=== PATIENT | female | born 1985 | race Caucasian/White ===

== ENCOUNTER 2020-08-14 06:00 | Outpatient (RCR) | payer MEDICAID, SELFPAY | END 2020-08-17 23:59 | disposition home or self-care (01) | LOC: SPT 06:00 | PROVIDERS: PCP Family Medicine; Referring Provider Family Medicine; Visit Provider Family Medicine | DX: R10.2 Pelvic and perineal pain (principal) | CPT/HCPCS: 97110; 97161 ==

== ENCOUNTER 2020-08-18 06:00 | Outpatient (RCR) | payer BC, SELFPAY | END 2020-09-17 23:59 | disposition home or self-care (01) | LOC: SPT 06:00 | PROVIDERS: PCP Family Medicine; Referring Provider Family Medicine; Visit Provider Family Medicine | DX: R10.2 Pelvic and perineal pain (principal) | CPT/HCPCS: 97110 ==

== ENCOUNTER 2020-09-04 11:25 | Outpatient (CLI) | payer BC, MEDICAID, SELFPAY ==
[2020-09-04] VITALS (10 sets, daily range): BP systolic 102–114; BP diastolic 66–78; PULSE 84–106; RESP 16; TEMP 36.4; O2SAT 96–99; BMI 32.9
== END 2020-09-04 12:17 | disposition home or self-care (01) ==
LOC: OPOB 11:32 → OBGYN 11:35
PROVIDERS: PCP Family Medicine; Visit Provider Family Medicine
DX: O36.8190 Decreased fetal movements, unspecified trimester, not applicable or unspecified (principal); Z3A.00 Weeks of gestation of pregnancy not specified
CPT/HCPCS: 59025; 99211

== ENCOUNTER 2020-09-06 05:44 | Inpatient (IN) | payer BC, MEDICAID, SELFPAY ==
[2020-09-06] VITALS (29 sets, daily range): BP systolic 101–125; BP diastolic 58–82; PULSE 53–96; RESP 15–18; TEMP 36.4–36.8; O2SAT 95–100
[2020-09-06 06:35] LABS: Basophils % 0.2 %; Eosinophils % 0.3 %; Hematocrit 34.2 % (37.0-47.0); Lymphocytes % 18.1 %; Mean Corpuscular HGB Conc 32.2 g/dL (30.0-36.0); Mean Corpuscular Hemoglobin 28.3 pg (28.0-34.0); Mean Corpuscular Volume 87.9 fL (81-99); Mean Platelet Volume 11.2 fL (7.4-10.4); Monocytes # 0.7 10^3/uL (0.2-0.9); Monocytes % 6.6 %; Neutrophils # 8.14 10^3/uL (1.8-7.7); Nucleated Red Blood Cells % 0 %; Platelet Count 277 10^3/cmm (130-400); Red Blood Count 3.89 10^6/uL (4.1-5.3); Red Cell Distribution Width 13.9 % (12.1-15.1)
--- NOTE | 2020-09-06 06:56 | P.ANESASSM_ITS ---
Pre-Anesthetic Assessment Pre-Anesthetic Assessment: Height/Weight: Height 1.63 m Temp Pulse BP 97.5 F L 90 112/80 09/06/20 06:04 09/06/20 06:49 09/06/20 06:49 Preop Diagnosis: cS Proposed Procedure: Operation Date: 09/06/20 07:00 Proposed Procedures p Section Repeat(Not Applicable) - Ila Rivera MD Familial anesthetic complications: none Was Beta Carlos Eduardo taken within 24 hours: N/A Last Intake: 18:30 Exam: Pre-Anes Outpt Exam: alert, oriented x 3, clear to auscultation bilaterally and regular rate & rhythm Airway: Submandibular: WNL Cervical ROM: WNL MP: 1 History/ROS: No significant history except as noted GI: Comments: N/V/D Data Anesthesia CBC & Chem 7: 09/06/20 06:15 Other Labs: Laboratory Results - last 48 hr 09/06/20 06:15 WBC 11.0 H RBC 3.89 L Hgb 11.0 L Hct 34.2 L MCV 87.9 MCH 28.3 MCHC 32.2 RDW 13.9 Plt Count 277 MPV 11.2 H Neut % (Auto) 74.0 Lymph % (Auto) 18.1 [place] % (Auto) 6.6 Eos % (Auto) 0.3 Baso % (Auto) 0.2 Neut # (Auto) 8.14 H Lymph # (Auto) 2.0 [place] # (Auto) 0.7 Eos # (Auto) 0.0 Baso # (Auto) 0.0 Nucleated RBC % (auto) 0 Nucleated RBCs # 0.0 Cardiac Studies: No Data to Display
[2020-09-06] MEDS: famotidine 20 mg/2 mL INJ IVP (07:00)
[2020-09-06] MEDS: lactated ringers 1,000 ML 999 ML IV ×2 (07:00→19:59)
[2020-09-06] MEDS: metoclopramide 5 mg/mL SDV 2 mL 10 MG IVP (07:00)
[2020-09-06] MEDS: citric acid-sodium citrate 30 mL UDC PO (07:00)
--- NOTE | 2020-09-06 08:54 | P.HP_ITS ---
Providers/Chief Complaint Admitting Physician: Ila Rivera MD Primary Care Provider: Ila Rivera MD Chief Complaint: STACIE 09/12/20 History of Present Illness Alycia Witt is a 34 year old female G6, P4 at 39 weeks gestation here for repeat section and desired permanent surgical sterilization. Review of Systems Const: Denies: fever(s) or chills Eyes: Denies: change in vision ENMT: Denies: throat pain Card: Denies: chest pain or palpitations GI: Denies: abdominal pain, nausea or vomiting : Denies: flank pain or difficulty voiding Skin/Breast: Denies: rash Neuro: Denies: numbness in extremities Endo: Denies: polydipsia Govind/Lymph: Denies: easy bruising or easy bleeding Medications/Allergies Home Medications Medication Instructions Recorded Confirmed Last Taken Type docusate sodium [DOK] 100 mg PO BID #60 cap 09/08/20 Unknown Rx hydrocodone-acetaminophen 1 - 2 tab PO Q4H PRN #20 tab 09/08/20 Unknown Rx ibuprofen 800 mg PO TID PRN #30 tab 09/08/20 Unknown Rx Allergies Allergy/AdvReac Type Severity Reaction Status Date / Time No Known Allergies Allergy Verified 09/04/20 11:52 PFSH Acute Female Reproductive History: : 6 Para: 4 Spontaneous abortions: Yes Vitals/I&O/Wt Last Vital Signs Temp 97.5 F L 09/06/20 06:04 Pulse 79 09/06/20 07:19 Resp 18 09/06/20 05:54 BP 118/73 09/06/20 07:19 Physical Exam HENMT: COMMON NORMALS: normocephalic and atraumatic FACE & SINUS: normal facial exam Eye: COMMON NORMALS: Equal, round and reactive pupils present and EOMs intact bilaterally Chest: COMMONS NORMALS: normal inspection of the chest Resp: COMMON NORMALS: normal respiratory effort AUSCULTATION: clear to auscultation bilaterally Cardio: COMMON NORMALS: regular rate and regular rhythm GI: PALPATION: Yes Soft to palpation Extremity: GENERAL: No calf tenderness and Yes edema Neuro: SENSORIUM/ORIENTATION: Yes alert, Yes oriented to person, Yes oriented to place and Yes oriented to time Psych: COMMON NORMALS: mental status grossly normal APPEARANCE: Yes grossly normal Skin: GENERAL SKIN EXAM: no rashes or lesions noted Urinary Catheter Management^: Horton: Cath Placed During This Visit: yes Urinary Catheter Date of Insertion: 09/06/20 Urinary Catheter Time of Insertion: 07:50 Data : 09/06/20 20:55 A&P Assessment and plan (1) History of section complicating : Repeat section Status: Resolved (2) Encounter for sterilization: Bilateral tubal ligation Status: Acute (3) with 39 completed weeks gestation: Status: Resolved Attestations Medical Necessity Statement*: Routine surgery and postoperative care Coding Level of Care Code Acute Administrative Assistant Receptionist for Chg Fwd Diagnoses History of section complicating O34.219 Encounter for sterilization Z30.2 with 39 completed weeks gestation Z3A.39
--- NOTE | 2020-09-06 08:57 | P.OP_ITS ---
Operative Report Date of procedure: September 06, 2020 Pre-op Diagnosis: Repeat section with bilateral tubal ligation Post-op diagnosis: same Procedure Done: Repeat low transverse section Bilateral tubal ligation Specimens removed/disposition: Vertex female infant weight 4000 g Apgars 9 and 9 Pathology: Segments of right and left fallopian tubes Surgeon: Ila Rivera Anesthesia: Other (Spinal) Estimated blood loss (mL): 400 IV fluids (mL): 2,000 Urine output (mL): 50 Complications: None Condition: stable Disposition: floor Procedure: After informed consent the patient was taken to the OR where she was prepped and draped in normal sterile fashion in dorsal supine position with a left lateral tilt. After adequate spinal anesthesia was verified a Pfannenstiel skin incision was made through the prior scar and carried through to the underlying layer of fascia sharply. The fascial incision was then extended laterally using the [place]. There was a decent amount of fascial scarring and paucity of midline rectus muscles. The fascia was then grasped with [place] clamps and the underlying tissues were carefully dissected off. The peritoneum was then entered bluntly and the incision site was stretched manually. There was some thick peritoneum that required dissection using the [place]. The bladder blade was then inserted and the vesicouterine peritoneum was identified and entered sharply using the Metzen[place]ums. Bladder flap was created digitally and the bladder blade was reinserted. Uterine incision was made in a transverse fashion in the lower uterine segment. Amniotic rupture of membranes was performed using an Allis clamp and clear fluid was noted. The 's head and body were delivered atraumatically with bulb suction of the mouth and nares at delivery. The cord was clamped and cut and the was handed to the waiting pediatric nurse. Cord blood was obtained. The placenta was delivered using fundal pressure. The uterus was then exteriorized from the abdomen and a dry sponge was used to clear the uterus of clots and debris. The uterine incision was repaired using 0 chromic in a running locked fashion. A second layer of the same suture was used in an imbricating manner. There was excellent hemostasis. The right fallopian tube was then grasped with a Juan and a proximal portion of the tube was ligated and excised. Specimen was sent to pathology. Tubal ostia were identified. The cut segments of the tube were coagulated using the Bovie. The left fallopian tube was then grasped with a Juan and a proximal portion of the tube was ligated and excised. Specimen was sent to pathology. Tubal ostia were identified. The cut portions of the tube were coagulated using the Bovie. The uterus was then gently returned to the abdomen. Irrigation was used to clear the gutters of clots and debris and the uterine incision was reinspected for hemostasis. The cut portions of the tube were also inspected for hemostasis. The peritoneum was then gently reapproximated using 4-0 Vicryl in a running fashion. The subfascial tissue was inspected for hemostasis. The fascia was then reapproximated using 0 Vicryl in a running fashion. The subcutaneous tissue was then irrigated and inspected for hemostasis. Any small bleeders were coagulated using the Bovie. The skin was then reapproximated using 4-0 Vicryl on a [place] needle. Steri-Strips and a pressure bandage were applied and patient went to recovery in stable condition
[2020-09-06] MEDS: ketorolac 30 mg/mL INJ IVP ×3 (09:51→20:33)
[2020-09-06] MEDS: dextrose 5%-lactated ringers 1,000 ML 125 ML IV ×2 (09:51→18:16)
--- NOTE | 2020-09-06 11:12 | PC.NURSE ---
0834 Mom still in OR Baby needing to feed for blood sugar = 32. Mom willing, just needed help with latch and holding. included dad to help.
[2020-09-06] MEDS: ondansetron 2 mg/ML SDV 2 mL 4 MG IVP ×2 (11:35→15:49)
--- NOTE | 2020-09-06 15:50 | PC.NURSE ---
Nausea/Vomiting Episode Patient assisted to high herring's position. Complained of the room spinning and feeling lightheaded. Had patient remain in bed for a few minutes until she reported improvement. Patient desired to continue to move towards edge of bed. Assisted patient slowly to edge of bed and allowed her feet to dangle. She reported feeling slightly lightheaded. Talked with patient for 3-5 minutes while her feet dangled off edge of bed. Patient then got immediate wave of nausea and requested bucket. Had one episode of emesis, but reported improvement after vomiting. Patient requested to remain sitting on side of bed. This nurse checked on her in 15 minutes, patient complained of increase nausea and lightheadedness, requested to lay back in bed. This nurse stated we will attempt to get out of bed next hour and allow patient to recover.
[2020-09-06] MEDS: sodium chloride 0.9% 500 ML 999 ML IV (17:38)
--- NOTE | 2020-09-06 18:31 | ANE.PACU2 ---
Inpatient post-anesthesia follow up: Airway intact: Yes Vital signs: Temperature 97.6 F Pulse Rate 67 Respiratory Rate 16 Blood Pressure 117/71 Pulse Oximetry 98 Oxygen Delivery Me thod Room Air Oxygen Flow Rate Fraction of Inspir ed Oxygen Hydration adequate: Yes Nausea and vomiting: No Pain level: 2 Mental status: Baseline
[2020-09-06 21:27] LABS: Hematocrit 30.1 % (37.0-47.0); Hemoglobin 9.7 g/dL (11.5-15.3); Mean Corpuscular HGB Conc 32.2 g/dL (30.0-36.0); Mean Corpuscular Hemoglobin 28.5 pg (28.0-34.0); Mean Corpuscular Volume 88.5 fL (81-99); Mean Platelet Volume 11.6 fL (7.4-10.4); Platelet Count 234 10^3/cmm (130-400); Red Cell Distribution Width 13.8 % (12.1-15.1); White Blood Count 12.8 10^3/uL (4.0-10.0)
--- NOTE | 2020-09-06 22:55 | PC.NURSE ---
pt up ambulating in room, tolerating well, states no further nausea or dizziness. Pt states she feels good .
[2020-09-07 00:35] VITALS: BP 90/57; PULSE 69; RESP 16; TEMP 36.7; O2SAT 95
[2020-09-07] MEDS: ketorolac 30 mg/mL INJ IVP (03:10)
[2020-09-07 05:12] VITALS: BP 104/66; PULSE 72; RESP 17; TEMP 36.6; O2SAT 96
[2020-09-07] MEDS: acetaminophen 325 mg Tablet 650 MG PO (06:29)
[2020-09-07] MEDS: prenatal vitamin Capsule 1 CAP PO (10:03)
[2020-09-07] MEDS: ferrous sulfate EC 325 mg Tablet PO ×2 (10:03→17:42)
[2020-09-07] MEDS: docusate sodium 100 mg Capsule PO ×2 (10:04→17:42)
[2020-09-07] MEDS: ibuprofen 800 mg tablet PO ×3 (10:04→20:21)
[2020-09-07 10:06] VITALS: BP 105/68; PULSE 75; RESP 16; TEMP 36.8; O2SAT 96
--- NOTE | 2020-09-07 12:16 | P.PN_ITS ---
Subjective Subjective: Interval history: Postop day #1 repeat section with bilateral tubal ligation. Patient is doing well. She is ambulating and passing flatus. She would like to get up and take a shower. Vitals/I&O/Wt Last Vital Signs Temp 98.3 F 09/07/20 10:06 Pulse 75 09/07/20 10:06 Resp 16 09/07/20 10:06 BP 105/68 09/07/20 10:06 Pulse Ox 96 09/07/20 10:06 09/06/20 09/07/20 09/07/20 22:59 06:59 14:59 Intake Total 4580.000 / 7712.417 500 / 8212.417 Output Total 375 / 1025 1050 / 2075 900 / 900 Balance 4205.000 / 6687.417 -550 / 6137.417 -900 / -900 Weight last 48 hrs Weight 187 lb Physical Exam Const: COMMON NORMALS: patient oriented x3 HENMT: COMMON NORMALS: normocephalic and atraumatic HEAD & SCALP: normocephalic and atraumatic FACE & SINUS: normal facial exam Eye: COMMON NORMALS: Equal, round and reactive pupils present and EOMs intact bilaterally PUPIL: Yes Equal, round and reactive pupils present Chest: COMMONS NORMALS: normal inspection of the chest Resp: COMMON NORMALS: normal respiratory effort, No retractions and clear to auscultation bilaterally EFFORT & INSPECTION: Yes able to speak in complete sentences AUSCULTATION: clear to auscultation bilaterally Cardio: COMMON NORMALS: regular rate and regular rhythm RATE: regular rate RHYTHM: regular rhythm GI: COMMON NORMALS: Soft to palpation (Fundus is firm) INSPECTION: Yes incision (Clean dry and intact) AUSCULTATION: Yes normoactive bowel sounds PALPATION: Yes Soft to palpation (Fundus is firm) and Yes Tenderness to palpation present (GI) (Appropriate postoperative) Extremity: NARRATIVE EXTREMITY EXAM: Bilateral nonpitting edema GENERAL: No calf tenderness Neuro: COMMON NORMALS: patient oriented x3 and moves all extremities Urinary Catheter Management^: Horton: Cath Placed During This Visit: yes Urinary Catheter Date of Insertion: 09/06/20 Urinary Catheter Time of Insertion: 07:40 Data : 09/06/20 20:55 A&P Assessment and plan (1) Status post repeat low transverse section: Postop day #1 repeat section with bilateral tubal ligation. Patient is doing well. Continue routine postoperative care Status: Acute Attestations Medical Necessity Statement*: Routine and postoperative care Coding Level of Care Code Acute Electrical Construction Project Manager for Chg Fwd Diagnoses Status post repeat low transverse section Z98.891
[2020-09-07] MEDS: simethicone 80 mg Chew PO (15:07)
[2020-09-07] MEDS: HYDROcodone-acetaminophen 5-325 mg Tablet PO ×2 (15:14→20:21)
[2020-09-07 16:00] VITALS: BP 102/70; PULSE 74; RESP 16; TEMP 36.7; O2SAT 96
[2020-09-07 21:25] VITALS: BP 115/57; PULSE 90; RESP 16; TEMP 36.7; O2SAT 96
[2020-09-08 04:10] VITALS: BP 109/70; PULSE 72; RESP 17; TEMP 36.6; O2SAT 98
[2020-09-08] MEDS: HYDROcodone-acetaminophen 5-325 mg Tablet PO (06:17)
[2020-09-08] MEDS: docusate sodium 100 mg Capsule PO (10:34)
[2020-09-08] MEDS: prenatal vitamin Capsule 1 CAP PO (10:34)
[2020-09-08] MEDS: ibuprofen 800 mg tablet PO (10:34)
--- NOTE | 2020-09-08 10:48 | P.DS_ITS ---
Discharge Providers BUSINESS CONTINUITY PLANNER Date of Admission: 09/06/20 05:44 Date of Discharge: 09/08/20 Attending Provider at Admission: Ila Rivera MD Attending Provider at Discharge: Ila Rivera MD Primary Care Provider: lIa Rivera MD Diagnoses at Discharge Discharge Diagnosis (1) Status post repeat low transverse section: Status: Acute Reason for Visit Reason for Visit: STACIE 09/12/20 Hospital Course Hospital Course This is a 34-year-old who was admitted for a scheduled repeat section with bilateral tubal ligation. There were no complications during the procedure. The patient did well postoperatively. On day #2 she was ambulating, tolerating a regular diet, had good pain control on oral medications and was comfortable with discharge home. Information Peripartum Data: Delivery Method: Physical Exam HENMT: COMMON NORMALS: normocephalic HEAD & SCALP: normocephalic Eye: COMMON NORMALS: EOMs intact bilaterally Chest: COMMONS NORMALS: normal inspection of the chest Resp: COMMON NORMALS: normal respiratory effort Cardio: COMMON NORMALS: regular rate and regular rhythm RATE: regular rate RHYTHM: regular rhythm GI: COMMON NORMALS: Soft to palpation (Fundus firm U- 2) INSPECTION: Yes incision (Clean dry and intact) PALPATION: Yes Soft to palpation (Fundus firm U- 2) and Yes Tenderness to palpation present (GI) (Appropriate postoperative) Urinary Catheter Management^: Horton: Cath Placed During This Visit: yes Urinary Catheter Date of Insertion: 09/06/20 Urinary Catheter Time of Insertion: 07:40 Discharge Data Data Completed and Pending: Completed Studies During Hospitalization Category Date Time Status Pathology: Surgic al [PTH] Routine Pth 09/06/20 09:06 Completed Vitals: Last Vital Signs Temp 97.8 F 09/08/20 04:10 Pulse 72 09/08/20 04:10 Resp 17 09/08/20 04:10 BP 109/70 09/08/20 04:10 Pulse Ox 98 09/08/20 04:10 Discharge Plan Discharge Patient Disposition: Home Condition: Stable Prescriptions: New hydrocodone-acetaminophen 5-325 mg Tablet 1 - 2 tab PO Q4H PRN (Reason: Moderate To Severe Pain) Qty: 20 RF: 0 docusate sodium [DOK] 100 mg Capsule 100 mg PO BID Qty: 60 RF: 0 ibuprofen 800 mg Tablet 800 mg PO TID PRN (Reason: Abdominal Discomfort) Qty: 30 RF: 0 No Action No Known Home Medications RF: 0 Discharge Orders: Discharge Order (Routine); Ordered 09/08/20 Ordered By: Ila Rivera Referrals: Ila Rivera MD [Primary Care Provider] - 09/12/20 2:35 pm (Your incision check appointment has been scheduled for 09/12/2020 at 2:[address] Rivera. Your 4 week appointment has been scheduled for 10/05/2020 at 1:[address] Rivera.) Patient Instructions: Vitamins (By mouth), Pre-eclampsia and Eclampsia (DC), Bleeding (DC), OB - Melecio/Nicole, OB Discharge Report, OB Food/Drug Interaction Guide, OB Home Care, OB Proud Parent Packet Discharge Attestations BUSINESS CONTINUITY PLANNER Time Spent in Discharge Care*: less than 30 min Coding Level of Care Code Acute Rough And Trueing Machine Operator for Chg Fwd Diagnoses Status post repeat low transverse section Z98.891
--- NOTE | 2020-09-08 11:45 | PC.NURSE ---
visit This mom is still reporting difficulty with pain at the start of feeding. Yesterday I had her massage and prep her nipple to make a deeper latch. she reports doing that. Her nipple is wide. She has not tried using her pump to shape the nipple, that may still be a benefit. Her nipples do not appear to be damaged, they look intact, no blisters, cracking or even redness. She reports the pain seems to go away as her let down occurs. It seems her milk is coming in. Baby's oral anatomy is good, no tongue tie or lip tie, palate is normal, her mouth may seem a little small but she is able to accommodate mom's nipple. Suggested she try the pump and is she still has pain we can look at other options such as nipple shield.
[2020-09-08 12:00] VITALS: BP 102/65; PULSE 60; RESP 18; TEMP 36.7; O2SAT 98
== END 2020-09-08 13:00 | disposition home or self-care (01) | DRG 785 ==
PROVIDERS: Admitting Provider Family Medicine; PCP Family Medicine; Visit Provider Family Medicine
PROC: 10D00Z1 Extraction of Products of Conception, Low, Open Approach (ICD-10-PCS; CPT 59514; principal; 2020-09-06 07:00)
DX: O34.211 Maternal care for low transverse scar from previous cesarean delivery (principal); Z3A.39 39 weeks gestation of pregnancy; Z37.0 Single live birth; Z30.2 Encounter for sterilization
CPT/HCPCS: 36415; 58611; 59025; 59409; 85025; 85027; 86850; 86900; 88302; 90471; 90686; 98960; 99211; J1885; J2274; J2370; J2405; J2765; J3490; J7030; J7040

== ENCOUNTER 2025-03-07 09:06 | Outpatient (CLI) | payer MEDICAID, SELFPAY ==
--- NOTE | 2025-03-07 09:00 | MM_ITS ---
WS: [id number] SCREENING DIGITAL BREAST TOMOSYNTHESIS MAMMOGRAM WITH CAD HISTORY: SCREENING COMPARISON: None available. Bilateral CC and MLO with tomosynthesis and synthetic mammography submitted. Computer aided detection analyzed. Breast composition: The breasts are heterogeneously dense, which may obscure small masses. Partially obscured, ovoid mass measures 9 x 12 x 9 mm in the posterior RIGHT breast just medial to the nipple line. No distortion. No suspicious grouping of calcifications. MM/MM scr tomosynthesis [id number] IMPRESSION: BI-RADS: 0 - Incomplete: Need additional imaging evaluation FOLLOW UP: Need Additional Imaging RIGHT breast: Spot compression views (CC and MLO). True ML. Ultrasound to follo w if abnormality persists.
== END 2025-03-07 09:07 | disposition home or self-care (01) ==
LOC: RAD 09:08
PROVIDERS: PCP Family Medicine; Visit Provider Family Medicine
DX: Z12.31 Encounter for screening mammogram for malignant neoplasm of breast (principal); R92.333 Mammographic heterogeneous density, bilateral breasts; N63.12 Unspecified lump in the right breast, upper inner quadrant
CPT/HCPCS: 77063; 77067

== ENCOUNTER 2025-04-11 10:55 | Outpatient (CLI) | payer MEDICAID, SELFPAY ==
--- NOTE | 2025-04-11 | MM_ITS ---
WS: [id number] ADDITIONAL VIEWS RIGHT MAMMOGRAM WITH DIGITAL BREAST TOMOSYNTHESIS. RIGHT BREAST ULTRASOUND HISTORY: Follow-up annual screening mammogram. COMPARISON: 03/07/2025 RIGHT MAMMOGRAM: Spot compression views and true ML with digital breast tomosynthesis and SM. Breast composition: The breasts are heterogeneously dense, which may obscure small masses. The asymmetry in the posterior retroareolar RIGHT breast is less apparent with additional imaging. There is still some very mild asymmetry which will be evaluated by ultrasound. No persistent mass. RIGHT BREAST ULTRASOUND 2-D and color Doppler imaging submitted. Breast tissue is very dense. There is a well-circumscribed cyst at 9:00, 2 cm from the nipple measuring 0.7 x 0.7 x 0.4 cm. This does not correspond in size or location to the mammographic abnormality. There is no shadowing or mass identified in the retroareolar region against the chest wall. MM/MM diag RT tomosynthesis [id number] IMPRESSION: BI-RADS: 2 - Benign FOLLOW UP: 1 Year Follow-up Recommend return to annual screening mammography. No mammographic or ultrasound abnormality for follow-up identified.
--- NOTE | 2025-04-11 11:07 | US_ITS ---
WS: [id number] ADDITIONAL VIEWS RIGHT MAMMOGRAM WITH DIGITAL BREAST TOMOSYNTHESIS. RIGHT BREAST ULTRASOUND HISTORY: Follow-up annual screening mammogram. COMPARISON: 03/07/2025 RIGHT MAMMOGRAM: Spot compression views and true ML with digital breast tomosynthesis and SM. Breast composition: The breasts are heterogeneously dense, which may obscure small masses. The asymmetry in the posterior retroareolar RIGHT breast is less apparent with additional imaging. There is still some very mild asymmetry which will be evaluated by ultrasound. No persistent mass. RIGHT BREAST ULTRASOUND 2-D and color Doppler imaging submitted. Breast tissue is very dense. There is a well-circumscribed cyst at 9:00, 2 cm from the nipple measuring 0.7 x 0.7 x 0.4 cm. This does not correspond in size or location to the mammographic abnormality. There is no shadowing or mass identified in the retroareolar region against the chest wall. US/US breast RT limited* [id number] IMPRESSION: BI-RADS: 2 - Benign FOLLOW UP: 1 Year Follow-up Recommend return to annual screening mammography. No mammographic or ultrasound abnormality for follow-up identified.
== END 2025-04-11 10:56 | disposition home or self-care (01) ==
LOC: RAD 10:57
PROVIDERS: PCP Family Medicine; Visit Provider Family Medicine
DX: R92.8 Other abnormal and inconclusive findings on diagnostic imaging of breast (principal); N60.01 Solitary cyst of right breast; R92.333 Mammographic heterogeneous density, bilateral breasts
CPT/HCPCS: 76642; 77061; G0279